=== PATIENT | female | born 1990 | race African-American/Black ===

== ENCOUNTER 2019-03-15 23:57 | Emergency (ER) | payer OTHER ==
[~2019-03-15] VITALS: Ht 177.8 cm; Wt 121.6 kg
[2019-03-16] MEDS ORDERED: LAMICTAL (BLUE)25 MG PO (00:41)
[2019-03-16] MEDS ORDERED: PEPCID20 MG PO (03:18)
[2019-03-16] MEDS ORDERED: PREDNISONE 20 M20 MG PO (03:18)
[2019-03-16 03:50] VITALS: BP 118/83
== END 2019-03-16 03:50 | disposition home or self-care (01) ==
LOC: ER 23:57
DX: L50.9 Urticaria, unspecified (principal); T42.6X5A Adverse effect of other antiepileptic and sedative-hypnotic drugs, initial encounter; Y92.89 Other specified places as the place of occurrence of the external cause

== ENCOUNTER 2019-04-14 15:08 | Emergency (ER) | payer OTHER ==
[~2019-04-14] VITALS: Ht 177.8 cm; Wt 121.6 kg
[~2019-04-14 15:08] MED LIST: LAMICTAL (BLUE)25 MG PO; PEPCID20 MG PO; PREDNISONE 20 M20 MG PO
[2019-04-14 15:23] LABS: URINE BILIRUBIN NEGATIVE (Negative); URINE BLOOD NEGATIVE (Negative); URINE CLARITY CLEAR; URINE COLOR YELLOW; URINE GLUCOSE-RANDOM* NEGATIVE (Negative); URINE KETONES NEGATIVE (Negative); URINE LEUKOCYTES-REFLEX NEGATIVE (Negative); URINE NITRITE-REFLEX NEGATIVE (Negative); URINE PROTEIN (DIPSTICK) NEGATIVE (Negative); URINE SPECIFIC GRAVITY >= 1.030 (1.005-1.035); URINE UROBILINOGEN 0.2 E.U./dl (0.2-1.0)
[2019-04-14 15:56] LABS: BASOPHILS 1.1 % (0.0-2.0); EOSINOPHILS 1.9 % (0.0-3.0); HEMATOCRIT 36.8 % (37.0-47.0); HEMOGLOBIN 11.8 gm/dL (12.0-15.0); LYMPHOCYTES 38.5 % (24.0-44.0); MCH 25.4 pg (26.0-34.0); MCV 79.2 fL (80.0-100.0); PLATELET COUNT 307 thou/uL (150-400); POLYS 51.5 % (36.0-66.0); RBC 4.65 mil/uL (4.20-5.00); RDW 17.3 % (10.5-14.5); WBC 5.8 thou/uL (4.0-11.0)
[2019-04-14 16:07] LABS: CALCIUM 8.8 mg/dL (8.5-10.1); CREATININE 0.8 mg/dL (0.6-1.0); POTASSIUM 3.5 mmol/L (3.5-5.1)
[2019-04-14 16:13] LABS: ALBUMIN 3.9 g/dL (3.4-5.0); TOTAL BILIRUBIN 0.3 mg/dL (<0.1-1.0)
[2019-04-14] MEDS ORDERED: HYDROXYZINE HCL25 M2 PO (18:12)
[2019-04-14 18:25] VITALS: BP 132/72
== END 2019-04-14 18:20 | disposition home or self-care (01) ==
LOC: ER 15:08
PROVIDERS: Nurse Practitioner Family
DX: N83.201 Unspecified ovarian cyst, right side (principal); F41.9 Anxiety disorder, unspecified; F31.9 Bipolar disorder, unspecified; Z98.890 Other specified postprocedural states; Z88.0 Allergy status to penicillin; Z88.1 Allergy status to other antibiotic agents; Z88.6 Allergy status to analgesic agent

== ENCOUNTER 2019-05-13 18:52 | Emergency (ER) | payer OTHER ==
[~2019-05-13] VITALS: Ht 177.8 cm; Wt 104.3 kg
[~2019-05-13 18:52] MED LIST changes: +HYDROXYZINE HCL25 M2 PO
[2019-05-13 19:32] LABS: ABSOLUTE NEUTROPHILS 3.4 thou/uL (1.4-8.2); BASOPHILS 1.3 % (0.0-2.0); EOSINOPHILS 1.2 % (0.0-3.0); HEMATOCRIT 37.2 % (37.0-47.0); HEMOGLOBIN 11.6 gm/dL (12.0-15.0); LYMPHOCYTES 40.5 % (24.0-44.0); MCH 24.9 pg (26.0-34.0); MCHC 31.3 g/dL (28.0-37.0); MCV 79.7 fL (80.0-100.0); MONOCYTES 7.4 % (1.0-8.0); PLATELET COUNT 278 thou/uL (150-400); POLYS 49.6 % (36.0-66.0); RBC 4.67 mil/uL (4.20-5.00); RDW 15.9 % (10.5-14.5); WBC 6.9 thou/uL (4.0-11.0)
[2019-05-13 19:37] LABS: ANION GAP 10 mmol/L (7-16); BUN 9 mg/dL (7-18); CALCIUM 9.7 mg/dL (8.5-10.1); CHLORIDE 99 mmol/L (98-107); CO2 24 mmol/L (21-32); CREATININE 0.8 mg/dL (0.6-1.0); GLUCOSE 88 mg/dL (74-106); POTASSIUM 3.7 mmol/L (3.5-5.1); SODIUM 133 mmol/L (136-145)
[2019-05-13 19:46] LABS: TROPONIN-I <0.06 ng/mL (<0.06)
[2019-05-13 20:28] VITALS: BP 109/55
--- NOTE | 2019-05-14 15:43 | EKG ---
[facility] [place] [address] ELECTROCARDIOGRAM REPORT Name: OLGA SCHUMACHER Room #: [id number] Admission: 05/13/19 Attend Phys: Discharge: 05/13/19 Date of : 88 Report #: [id number] THIS REPORT FOR: cc: GLEN DOWELL MD Physician not on staff David Henley MD [facility] ~ THIS REPORT FOR: //name// [facility] ED Test Date: 2019-05-13 Test Time: 19:10:11 Pat Name: OLGA SCHUMACHER Department: Room: Gender: F Technical Services Analyst: beau : 1990 Requested By: Dalila Catalan Order Number: [id number] MD: David Henley Measurements Intervals [place] Rate: 77 P: 68 ID: [id number] QRS: 40 QRSD: 93 T: 4 QT: 357 QTc: 404 Interpretive Statements Sinus rhythm Normal tracing No previous ECG available for comparison Electronically Signed On 05-14-2019 15:42:19 CDT by David Henley [email or web address] <ELECTRONICALLY SIGNED> By: David Henley MD, FAC 05/14/19 1542 1910 09 David Henley MD, FACC /EPI
== END 2019-05-13 20:36 | disposition home or self-care (01) ==
LOC: ER 18:52
PROVIDERS: Physician Assistant
DX: R42 Dizziness and giddiness (principal); R20.2 Paresthesia of skin; H93.19 Tinnitus, unspecified ear; H53.9 Unspecified visual disturbance; I10 Essential (primary) hypertension; Z88.1 Allergy status to other antibiotic agents; Z88.0 Allergy status to penicillin; Z88.8 Allergy status to other drugs, medicaments and biological substances

== ENCOUNTER 2020-04-30 22:15 | Emergency (ER) | payer OTHER ==
[~2020-04-30] VITALS: Ht 177.8 cm; Wt 119.3 kg
[2020-04-30 22:53] LABS: ABSOLUTE NEUTROPHILS 4.2 thou/uL (1.4-8.2); BASOPHILS 1.1 % (0.0-2.0); EOSINOPHILS 2.8 % (0.0-3.0); HEMATOCRIT 35.5 % (37.0-47.0); HEMOGLOBIN 11.4 gm/dL (12.0-15.0); LYMPHOCYTES 35.6 % (24.0-44.0); MCH 24.5 pg (26.0-34.0); MCHC 31.9 g/dL (28.0-37.0); MCV 76.7 fL (80.0-100.0); MONOCYTES 9.4 % (1.0-8.0); PLATELET COUNT 320 thou/uL (150-400); POLYS 51.1 % (36.0-66.0); RBC 4.63 mil/uL (4.20-5.00); RDW 16.7 % (10.5-14.5); WBC 8.1 thou/uL (4.0-11.0)
[2020-04-30 23:02] LABS: ANION GAP 11 mmol/L (7-16); BUN 8 mg/dL (7-18); CHLORIDE 104 mmol/L (98-107); CO2 23 mmol/L (21-32); CREATININE 0.7 mg/dL (0.6-1.0); GLUCOSE 85 mg/dL (74-106); POTASSIUM 4.4 mmol/L (3.5-5.1); SODIUM 138 mmol/L (136-145)
[2020-04-30 23:12] LABS: TROPONIN-I <0.06 ng/mL (<0.06)
[2020-04-30 23:21] VITALS: BP 123/87
--- NOTE | 2020-05-01 07:20 | EKG ---
[address] [place] [address] [place] [address] ELECTROCARDIOGRAM REPORT Name: OLGA SCHUMACHER Room #: DEP Mabel#: [id number] Admission: 04/30/20 Attend Phys: Discharge: 04/30/20 Date of : [birth year] Report #: [id number] [facility] ED Test Date: 2020-04-30 Test Time: 22:26:50 Pat Name: OLGA SCHUMACHER Department: Room: Gender: F Insurance Verifier: BEATRICE : 1990 Requested By: Domenic Echols Order Number: [id number] MD: David Henley Measurements Intervals [place] Rate: 86 P: 41 VA: 158 QRS: 62 QRSD: 86 T: 51 QT: 327 QTc: 391 Interpretive Statements Sinus rhythm Normal tracing Compared to ECG 05/13/2019 19:10:11 No significant changes Electronically Signed On 05-01-2020 7:20:50 [employer]LTER[employer] 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
== END 2020-04-30 23:50 | disposition home or self-care (01) ==
LOC: ER 22:15
PROVIDERS: Emergency Medicine
DX: R07.89 Other chest pain (principal); Z88.1 Allergy status to other antibiotic agents; Z88.0 Allergy status to penicillin; Z88.2 Allergy status to sulfonamides; Z88.8 Allergy status to other drugs, medicaments and biological substances

== ENCOUNTER 2021-01-03 19:39 | Emergency (ER) | payer OTHER ==
[~2021-01-03] VITALS: Ht 180.3 cm; Wt 102.5 kg
[2021-01-03 19:49] VITALS: BP 127/82
[2021-01-03 20:09] LABS: URINE BILIRUBIN NEGATIVE (Negative); URINE BLOOD TRACE (Negative); URINE CLARITY CLEAR; URINE COLOR YELLOW; URINE GLUCOSE-RANDOM* NEGATIVE (Negative); URINE KETONES NEGATIVE (Negative); URINE LEUKOCYTES-REFLEX NEGATIVE (Negative); URINE NITRITE-REFLEX NEGATIVE (Negative); URINE PROTEIN (DIPSTICK) NEGATIVE (Negative); URINE SPECIFIC GRAVITY 1.025 (1.005-1.035); URINE UROBILINOGEN 0.2 E.U./dl (0.2-1.0)
[2021-01-03 20:54] LABS: ABSOLUTE NEUTROPHILS 4.9 thou/uL (1.4-8.2); BASOPHILS 0.2 % (0.0-2.0); EOSINOPHILS 3.1 % (0.0-3.0); HEMATOCRIT 33.5 % (37.0-47.0); HEMOGLOBIN 10.6 gm/dL (12.0-15.0); LYMPHOCYTES 28.8 % (24.0-44.0); MCH 23.1 pg (26.0-34.0); MCHC 31.7 g/dL (28.0-37.0); MCV 72.8 fL (80.0-100.0); MONOCYTES 7.8 % (1.0-8.0); PLATELET COUNT 339 thou/uL (150-400); POLYS 60.1 % (36.0-66.0); RBC 4.61 mil/uL (4.20-5.00); RDW 18.7 % (10.5-14.5); WBC 8.1 thou/uL (4.0-11.0)
[2021-01-03 21:12] LABS: CALCIUM 9.1 mg/dL (8.5-10.1); CREATININE 0.8 mg/dL (0.6-1.0); POTASSIUM 3.4 mmol/L (3.5-5.1)
[2021-01-03 21:16] LABS: ALBUMIN 3.7 g/dL (3.4-5.0); TOTAL BILIRUBIN 0.2 mg/dL (0.2-1.0); TOTAL PROTEIN 7.7 g/dL (6.4-8.2)
[2021-01-03] MEDS ORDERED: IBUPROFEN 800800 M1 PO (21:46)
[2021-01-03] MEDS ORDERED: CYCLOBENZAPRINE5 MG PO (21:46)
[2021-01-03 22:03] LABS: ANISOCYTOSIS 2+
[2021-01-03 22:04] LABS: HYPOCHROMASIA 3+; MICROCYTES 2+; OVALOCYTES 1+; TARGET CELLS FEW
[2021-01-07 13:53] LABS: HSV PCR SOURCE BLISTER
[2021-01-08 06:06] LABS: HSV 1 DNA Negative (Negative); HSV 2 DNA Negative (Negative)
== END 2021-01-03 22:11 | disposition home or self-care (01) ==
LOC: ER 19:39
PROVIDERS: Physician Assistant
DX: D64.9 Anemia, unspecified (principal); R31.9 Hematuria, unspecified; R10.84 Generalized abdominal pain; I10 Essential (primary) hypertension; Z88.0 Allergy status to penicillin; Z88.1 Allergy status to other antibiotic agents; Z88.2 Allergy status to sulfonamides

== ENCOUNTER 2021-02-01 20:14 | Emergency (ER) | payer OTHER ==
[~2021-02-01] VITALS: Ht 180.3 cm; Wt 102.1 kg
[~2021-02-01 20:14] MED LIST changes: +CYCLOBENZAPRINE5 MG PO; +IBUPROFEN 800800 M1 PO
[2021-02-01 20:21] VITALS: BP 128/80
== END 2021-02-01 21:00 | disposition home or self-care (01) ==
LOC: ER 20:14
DX: S01.511D Laceration without foreign body of lip, subsequent encounter (principal); I10 Essential (primary) hypertension; Z88.1 Allergy status to other antibiotic agents; Z88.0 Allergy status to penicillin; Z88.6 Allergy status to analgesic agent; Z98.890 Other specified postprocedural states; X58.XXXD Exposure to other specified factors, subsequent encounter